=== PATIENT | male | born 1965 | race Caucasian/White ===

== ENCOUNTER 2019-06-16 19:14 | Emergency (ER) | payer SELFPAY ==
[~2019-06-16] VITALS: Ht 167.6 cm; Wt 118.2 kg
[2019-06-16] MEDS ORDERED: RISP1 PO (20:50)
[2019-06-16] MEDS ORDERED: METHOCARBAMOL 500 MG TABLET PO ONE (21:30)
[2019-06-16] MEDS ORDERED: KETOROLAC TROMETHAMINE 10 MG TABLET PO ONE (21:30)
[2019-06-16 22:00] VITALS: BP 131/81
== END 2019-06-16 22:00 | disposition home or self-care (01) ==
LOC: EMS 19:17 → EDBD 19:17 → EMS 22:00
DX: S39.012A Strain of muscle, fascia and tendon of lower back, initial encounter (principal); M62.830 Muscle spasm of back; X50.9XXA Other and unspecified overexertion or strenuous movements or postures, initial encounter; Y93.89 Activity, other specified; Y92.89 Other specified places as the place of occurrence of the external cause; Y99.8 Other external cause status